=== PATIENT | female | born 1995 | race African-American/Black ===

== ENCOUNTER 2018-02-06 19:01 | Emergency (ER) | payer MEDICAID ==
[~2018-02-06] VITALS: Ht 157.5 cm; Wt 60.0 kg
[2018-02-06 19:07] VITALS: BP 114/61
[2018-02-06] MEDS ORDERED: ALBUTEROL/IPRATROPIUM 2.5MG/0.5MG, 3 ML NPPB ONE (19:30)
[2018-02-06] MEDS ORDERED: ALBUTEROL/IPRATROPIUM 2.5MG/0.5MG, 3 ML ONE (19:30)
[2018-02-06] MEDS ORDERED: ALBUTEROL SULFATE 2.5 MG/3 ML ONE (19:30)
== END 2018-02-06 20:09 | disposition home or self-care (01) ==
LOC: ED 20:03
DX: J45.31 Mild persistent asthma with (acute) exacerbation (principal)
CPT/HCPCS: 71045; 94640; 99283; J7512; J7620

== ENCOUNTER 2020-11-23 13:13 | Emergency (ER) | payer MEDICAID, OTHER ==
[~2020-11-23] VITALS: Ht 160 cm; Wt 56.3 kg
--- NOTE | 2020-11-23 13:31 | NUR ---
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
--- NOTE | 2020-11-23 13:37 | NUR ---
REPORT CALLED TO WILFREDO ROPER. PT OK TO GO UP AT 1400.
[2020-11-23] MEDS ORDERED: ONDANSETRON 2MG/ML, 2ML IVPush ONE (14:00)
[2020-11-23] MEDS ORDERED: ONDANSETRON 2MG/ML, 2ML ONE (14:00)
[2020-11-23] MEDS ORDERED: SODIUM CHLORIDE 0.9% 1,000ML IVBOLUS ONE (14:00)
[2020-11-23] MEDS ORDERED: SODIUM CHLORIDE FLUSH 10ML SYR IVF ONE (14:00)
--- NOTE | 2020-11-23 14:04 | NUR ---
PT UNABLE TO VOID AT THIS TIME. FLUIDS INFUSING ORDERED ON EMAR. PT AWARE OF NEED FOR UA. CALL LIGHT W/IN REACH, PT VERBALIZED UNDERSTANDING ON USE.
[2020-11-23 14:08] LABS: BASOPHILS % (AUTO) 1 % (0-1); EOSINOPHILS % (AUTO) 2 % (1-7); LYMPHOCYTES % (AUTO) 23 % (22-44); MEAN CORPUSCULAR HEMOGLOBIN 30.4 pg (27.0-34.8); MEAN CORPUSCULAR HGB CONC 33.5 g/dL (32.4-35.8); MEAN PLATELET VOLUME 8.2 fL (7.4-10.4); MONOCYTES % (AUTO) 8 % (2-9); NEUTROPHILS % (AUTO) 66 % (42-75); PLATELET COUNT 308 x10^3/uL (130-400); RED BLOOD COUNT 4.35 x10^6/uL (3.82-5.3); RED CELL DISTRIBUTION WIDTH 12.8 % (9.6-15.2)
[2020-11-23 14:18] LABS: ALANINE AMINOTRANSFERASE 19 U/L (12-78); ALBUMIN 3.8 g/dL (3.4-5.0); ANION GAP 7 mmol/L (5-15); CALCIUM 8.9 mg/dL (8.5-10.1); CHLORIDE 106 mmol/L (98-107); CREATININE 0.55 mg/dL (0.55-1.02)
[2020-11-23 14:20] LABS: ALKALINE PHOSPHATASE 56 U/L (45-117); BILIRUBIN,TOTAL 0.7 mg/dL (0.2-1.0); TOTAL PROTEIN 7.8 g/dL (6.4-8.2)
--- NOTE | 2020-11-23 14:54 | NUR ---
PT'S NAUSEA HAS IMPROVED. URINE DARK TEA COLOR. ED MD MADE AWARE, LR BOLUS INITIATED ORDERED ON EMAR. PT DENIES FURTHER NEEDS AT THIS TIME. FAMILY AT BEDSIDE. CALL LIGHT IN REACH.
[2020-11-23 14:57] LABS: MICROSCOPIC NOT IND
[2020-11-23] MEDS ORDERED: LACTATED RINGERS 1,000 ML IVBOLUS ONE (15:00)
[2020-11-23 15:54] VITALS: BP 125/62
--- NOTE | 2020-11-23 15:56 | NUR ---
pt tolerated PO challenge well. Ambulatory to checkout c steady gait. Pt and family verbalized understanding to dc instructions.
== END 2020-11-23 15:57 | disposition home or self-care (01) ==
LOC: ED 14:13
DX: O21.8 Other vomiting complicating pregnancy (principal); Z3A.09 9 weeks gestation of pregnancy
CPT/HCPCS: 36415; 80053; 81003; 85025; 96361; 96374; 99283; J2405; J7030; J7120